=== PATIENT | female | born 1935 | race Caucasian/White ===

== ENCOUNTER 2020-07-10 22:05 | Emergency (ER) | payer MEDICARE, OTHER ==
[2020-07-10] MEDS ORDERED: Acetaminophen 325 MG Tab PO ONE (22:38)
--- NOTE | 2020-07-10 22:38 | EDM.PDOC ---
ED HPI GENERAL MEDICAL PROBLEM - General Chief Complaint: General Stated Complaint: fall, right arm laceration Time Seen by Provider: 07/10/20 22:30 Source of Information: Reports: Patient History Limitations: Reports: No Limitations - History of Present Illness INITIAL COMMENTS - FREE TEXT/NARRATIVE: Presents with her family for a fall at home which occurred approximately 1 hour prior to arrival. Patient tripped on her own feet while walking out of the laundry room fell forward and caught her right forearm on a metal hinge of a door suffered a significantly large skin tear on right anterior forearm. She did hit her head and bumped her glasses off has a small superficial laceration on her right eyebrow along with a large goose egg on her right frontal region with ecchymosis surrounding it. There is no laceration at this site. She is unsure what she hit her head on, likely the floor. She currently takes xarelto for A. fib. Hemostasis to skin tear achieved prior to arrival with direct pressure on right forearm. Tetanus was last updated this year. She did not lose any consciousness remembers the fall. She did not suffer any dizziness or felt like she was going to faint prior to the fall it was purely mechanical reason why she fell. Right Lower Arm Pain Score (Numeric/FACES): 10 - Related Data Allergies Allergy/AdvReac Type Severity Reaction Status Date / Time CT dye Allergy Cannot Uncoded 07/10/20 22:32 Remember Home Meds: Home Meds Rivaroxaban [Xarelto] 20 mg PO DAILY 07/10/20 [History] Ascorbic Acid [Vitamin C] 500 mg PO DAILY 07/11/20 [History] Clobetasol [Clobetasol 0.05%] 1 applic TOP ASDIRECTED PRN 07/11/20 [History] Ferrous Sulfate [Iron] 325 mg PO ASDIRECTED 07/11/20 [History] LORazepam [Ativan] 0.5 mg PO DAILY PRN 07/11/20 [History] Levothyroxine Sodium [Synthroid] 137 mcg PO DAILY 07/11/20 [History] Metoprolol Succinate 50 mg PO DAILY 07/11/20 [History] Multivitamin [Multivitamins] 1 cap PO DAILY 07/11/20 [History] Omeprazole 20 mg PO DAILY 07/11/20 [History] Sertraline [Zoloft] 100 mg PO DAILY 07/11/20 [History] Simvastatin 20 mg PO BEDTIME 07/11/20 [History] cephALEXin [Cephalexin] 500 mg PO TID 5 Days #15 tablet 07/11/20 [Rx] Past Medical History Cardiovascular History: Reports: Afib Hematologic History: Reports: Anticoagulation Therapy ED ROS GENERAL - Review of Systems Review Of Systems: See Below Constitutional: Reports: No Symptoms HEENT: Reports: No Symptoms. Denies: Vision Change Respiratory: Reports: No Symptoms. Denies: Shortness of Breath Cardiovascular: Reports: No Symptoms. Denies: Chest Pain, Dyspnea on Exertion, Syncope GI/Abdominal: Reports: No Symptoms. Denies: Abdominal Pain Musculoskeletal: Reports: No Symptoms. Denies: Neck Pain, Shoulder Pain, Back Pain Skin: Reports: Bruising, Wound Neurological: Reports: No Symptoms. Denies: Confusion, Dizziness, Headache, Numbness, Syncope, Difficulty Walking, Weakness Hematologic/Lymphatic: Reports: Easy Bleeding, Other (on xarelto) ED EXAM, GENERAL - Physical Exam Exam: See Below Exam Limited By: No Limitations General Appearance: Alert, WD/WN, No Apparent Distress Eye Exam: Bilateral Eye: EOMI, PERRL Ears: Normal TMs Nose: Normal Inspection, Normal Mucosa, No Blood Throat/Mouth: Normal Inspection, Normal Lips, Normal Oropharynx, Normal Voice Head: Normocephalic, Facial Tenderness, Other (large goose egg on her right frontal region with ecchymosis, negative for sandy sign negative raccoon eyes.) Neck: Normal Inspection, Supple, Non-Tender, Full Range of Motion. No: Tender Midline Respiratory/Chest: No Respiratory Distress, Lungs Clear, Normal Breath Sounds Cardiovascular: No Edema, Irregularly Irregular Peripheral Pulses: 2+: Radial (L), Radial (R), Dorsalis Pedis (L), Dorsalis Pedis (R) GI/Abdominal: Normal Bowel Sounds, Soft, Non-Tender, Pelvis Stable Back Exam: Normal Inspection, Full Range of Motion. No: Paraspinal Tenderness, Vertebral Tenderness Extremities: Normal Inspection, Normal Range of Motion, Other (Patient does have significant right wrist pain very difficult to assess for bony abnormalities as there is a large laceration covering over it. DNV intact). No: Joint Swelling Neurological: Alert, Oriented, CN II-XII Intact, Normal Cognition, Normal Gait, No Motor/Sensory Deficits Psychiatric: Normal Affect Skin Exam: Warm, Dry, Wound/Incision, Other (large skin tear to her right anterior forearm, small superficial nonrepairable linear abrasion to her right eyebrow from glasses) ED GENERAL MEDICAL PROCEDURES - Laceration/Wound Repair Right Anterior Distal Arm Lac/wound length in cm: 11 Appearance: Subcutaneous, Stellate, Irregular, Clean Distal NVT: Neuro & Vascular Intact, No Tendon Injury Anesthetic Type: Local Local Anesthesia - Lidocaine (Xylocaine): 1% with EPI Local Anesthetic Volume: 5cc Skin Prep: Chlorhexidine (Hibiciens), Saline, Sterile Drape Saline irrigation (cc's): 200 Exploration/Debridement/Repair: Wound Explored, In a Bloodless Field, Explored to Base, No Foreign Material Found, Wound Margins Revised, Multiple Flaps Aligned Closed with: Sutures, Steri-Strips Suture Size: 4-0 # of Sutures: 22 Suture Type: Nylon Course - Vital Signs Last Recorded V/S: Last Vital Signs Temp 98.2 F 07/10/20 22:39 Pulse 77 07/10/20 22:39 Resp 22 H 07/10/20 22:39 BP 168/95 H 07/10/20 22:39 Pulse Ox 95 07/10/20 22:39 - Orders/Labs/Meds Orders: Active Orders 24 hr Category Date Time Status Head wo Cont [CT] Stat Exams 07/10/20 22:27 Ordered Wrist Comp Min 3V Rt [CR] Stat Exams 07/10/20 22:56 Ordered Meds: Medications Discontinued Medications Generic Name Dose Route Start Last Admin Trade Name Freq PRN Reason Stop Dose Admin Acetaminophen 650 mg 07/10/20 22:38 07/10/20 22:49 Tylenol PO 07/10/20 22:39 650 mg NOW ONE Administration Cephalexin 500 mg 07/11/20 00:26 Keflex PO 07/11/20 00:27 ONETIME ONE Lidocaine/Epinephrine Confirm 07/10/20 22:54 Xylocaine 1% With Epinephrine 1:100,000 Administered 07/10/20 22:55 Dose 20 ml .ROUTE .STK-MED ONE Lidocaine/Epinephrine 20 ml 07/10/20 22:54 Xylocaine 1% With Epinephrine 1:100,000 INJECT 07/10/20 22:55 ONETIME ONE - Re-Assessments/Exams Free Text/Narrative Re-Assessment/Exam: 07/10/20 22:44 Patient is on anticoagulants head injury with signs of head trauma despite normal neurological examination patient was sent for CT head without contrast. Repaired the skin tear on anterior forearm as well. See procedure note. No upper or lower extremity bony tenderness. No neck or midline cervical tenderness. Free Text/Narrative Re-Assessment/Exam: 07/11/20 00:34 CT head negative for intracranial bleed and right wrist x-ray was unremarkable for acute fracture. I repaired the large laceration under sterile technique see procedure note. Patient tolerated very well. Due to it was a very large laceration and minimally contaminated, despite extensive wound cleaning and antiseptic chlorhexidine was used around the wound edges but not getting in the wound, prophylactic antibiotics were given to prevent infection. We had a conversation to wait and watch and not start antibiotics however the patient and I both weighed the risks and benefits, agree to take a 5-day course of prophylactics (keflex), her first dose was given the ED and prescription sent to the pharmacy. Wound dressing was covered with Telfa 4 x 4 gauze and wrapped in Kerlix. She will change the wound dressing tomorrow she understands to come back anytime she has any questions concerns about her wound. Return precaution discussed with head injury. The chance for delayed bleeding, despite negative CT scan. Family were both educated she is going home with her and daughter lives close by and can keep a close eye on her to the next 1 to 2 days. Return precautions discussed have low threshold return to the ED. Departure - Departure Time of Disposition: 00:33 Disposition: Home, Self-Care 01 Condition: Good Clinical Impression: Laceration of forearm without foreign body Qualifiers: Encounter type: initial encounter Laterality: right Qualified Code(s): S51.811A - Laceration without foreign body of right forearm, initial encounter - Discharge Information *PRESCRIPTION DRUG MONITORING PROGRAM REVIEWED*: No *COPY OF PRESCRIPTION DRUG MONITORING REPORT IN PATIENT JAIME: No Prescriptions: cephALEXin [Cephalexin] 500 mg PO TID 5 Days #15 tablet Referrals: Helga Moreno NP [Primary Care Provider] - Forms: ED Department Discharge Additional Instructions: return in 12 days for suture removal. monitor signs and symptoms of infection, keep clean and dry may shower in 24 hours, keep the site away from water, seal and cover while in tub or shower. take antibiotic for three times daily for 5 days. Sepsis Event Note (ED) - Focused Exam Vital Signs: Vital Signs Temp Pulse Resp BP Pulse Ox 07/10/20 22:39 98.2 F 77 22 H 168/95 H 95 - My Orders Last 24 Hours: My Active Orders 07/10/20 22:27 Head wo Cont [CT] Stat 07/10/20 22:56 Wrist Comp Min 3V Rt [CR] Stat - Assessment/Plan Last 24 Hours: My Active Orders 07/10/20 22:27 Head wo Cont [CT] Stat 07/10/20 22:56 Wrist Comp Min 3V Rt [CR] Stat
[2020-07-10] MEDS ORDERED: Lidocaine 1% with EPINEPHrine 1:100,000 20 ML MDV INJECT ONE (22:54)
[2020-07-10] MEDS ORDERED: Lidocaine 1% with EPINEPHrine 1:100,000 20 ML MDV ONE (22:54)
[2020-07-11] MEDS ORDERED: Cephalexin 250 MG Cap PO ONE (00:26)
--- NOTE | 2020-07-11 07:48 | CT ---
[id number] CT/CT Head WO IV EXAM: NONCONTRAST HEAD CT INDICATION: Fall. COMPARISON: October 22, 2017. DISCUSSION: Soft tissue swelling in the right anterior scalp and face. There is moderate generalized atrophy. The bearden and white matter are normal in attenuation. No mass effect or midline shift. No acute hemorrhage or extra-axial fluid collection. No acute territorial infarct is identified. Frothy secretions within the left sphenoid sinus are compatible with acute sinusitis. IMPRESSION: 1. No acute intracranial findings. 2. Acute left sphenoid sinusitis. Grant Joe MD 07/11/20 0747 Thank you for allowing us to participate in the care of your patient.
--- NOTE | 2020-07-11 08:36 | CR ---
[id number] RAD/RAD Wrist Right 3V Min EXAM: RAD Wrist Right 3V Min INDICATION: WRIST INJURY, LARGE LACERATION, FALL COMPARISON: January 30, 2016. DISCUSSION: Osteopenia and degenerative changes limit sensitivity for fracture. Within this limitation no fracture or dislocation is identified. There is advanced first carpometacarpal osteoarthritis with mild radial subluxation of the first metacarpal. Moderate degenerative changes throughout the remaining radiocarpal and intercarpal joints. Chondrocalcinosis most prominent at the TFCC. IMPRESSION: 1. No acute findings. Grant Joe MD 07/11/20 0835 Thank you for allowing us to participate in the care of your patient.
== END 2020-07-11 01:00 | disposition home or self-care (01) ==
LOC: KA.ED 22:05
DX: S51.811A Laceration without foreign body of right forearm, initial encounter (principal); S01.111A Laceration without foreign body of right eyelid and periocular area, initial encounter; I48.91 Unspecified atrial fibrillation; Z79.01 Long term (current) use of anticoagulants; Z91.041 Radiographic dye allergy status; Z79.899 Other long term (current) drug therapy; W01.198A Fall on same level from slipping, tripping and stumbling with subsequent striking against other object, initial encounter; Y92.009 Unspecified place in unspecified non-institutional (private) residence as the place of occurrence of the external cause
CPT/HCPCS: 12004; 70450; 73110-RT; 99283; 99283-25; A9270-GY

== ENCOUNTER 2020-08-01 10:47 | Emergency (ER) | payer MEDICARE, OTHER ==
--- NOTE | 2020-08-01 11:07 | EDM.PDOC ---
ED HPI GENERAL MEDICAL PROBLEM - General Stated Complaint: GAS Time Seen by Provider: 08/01/20 11:01 Source of Information: Reports: Patient History Limitations: Reports: No Limitations - History of Present Illness INITIAL COMMENTS - FREE TEXT/NARRATIVE: Presents emergency room by her Chuy for complaints of feeling fatigue, shortness of breath along with increased anxiety. Patient recently was seen in the [facility] out of town a few days ago. Wound care was done to her right wrist. Patient has been very worried about her right wrist laceration that is healing nicely. She denies any fever chills body aches chest pain she does have some shortness of breath when she becomes anxious. No shortness of breath with exertion or at rest when she develops anxiety she gets short of breath. Patient was recently changed antidepressants from sertraline to citalopram. And she is in the process of switching primary care providers over to [facility] with Dr. Nury Myers. Patient denies any COVID-19 exposures or concerns. Denies any upper respiratory infection symptoms as well. She did have a fall last time she was evaluated emergency room in which she still has a healing bruise underneath the right eye and some ecchymosis on her right upper thigh lateral aspect. Gait is stable and no more falls. She does take anticoagulants. She does complain of some intermittent dysuria at times and would like her urine checked as she does have history of UTIs once in a while. She does have history of lichen sclerosus which she uses clobetasol propionate for. She did not apply any on this m orning, she is forgot to. Abdomen Pain Score (Numeric/FACES): 2 - Related Data Allergies Allergy/AdvReac Type Severity Reaction Status Date / Time iodine Allergy Cannot Verified 08/01/20 11:[address] dye Allergy Cannot Uncoded 08/01/20 11:05 Remember Home Meds: Home Meds Rivaroxaban [Xarelto] 20 mg PO DAILY 07/10/20 [History] Ascorbic Acid [Vitamin C] 500 mg PO DAILY 07/11/20 [History] Clobetasol [Clobetasol 0.05%] 1 applic TOP ASDIRECTED PRN 07/11/20 [History] Ferrous Sulfate [Iron] 325 mg PO ASDIRECTED 07/11/20 [History] LORazepam [Ativan] 0.5 mg PO DAILY PRN 07/11/20 [History] Levothyroxine Sodium [Synthroid] 137 mcg PO DAILY 07/11/20 [History] Metoprolol Succinate 50 mg PO DAILY 07/11/20 [History] Multivitamin [Multivitamins] 1 cap PO DAILY 07/11/20 [History] Omeprazole 20 mg PO DAILY 07/11/20 [History] Simvastatin 20 mg PO BEDTIME 07/11/20 [History] Cyanocobalamin (Vitamin B-12) [Cyanocobalamin Injection] 1,000 mcg IM ASDIRECTED 08/01/20 [History] Escitalopram Oxalate 10 mg PO DAILY 08/01/20 [History] Fluticasone Propionate 2 spray NASBOTH BID 08/01/20 [History] Past Medical History Cardiovascular History: Reports: Afib Endocrine/Metabolic History: Reports: Hypothyroidism Hematologic History: Reports: Anticoagulation Therapy Social & Family History - Caffeine Use Caffeine Use: Reports: Coffee ED ROS GENERAL - Review of Systems Review Of Systems: Comprehensive ROS is negative, except as noted in HPI. Constitutional: Denies: Fever, Chills Respiratory: Reports: Shortness of Breath Cardiovascular: Denies: Chest Pain GI/Abdominal: Reports: Decreased Appetite, Flatus, Other (feels bloated). Denies: Black Stool, Bloody Stool, Constipation, Diarrhea, Distension, Hematemesis, Hematochezia, Melena, Nausea Skin: Reports: Wound (right wrist laceration. ) Hematologic/Lymphatic: Reports: Easy Bleeding, Other (on xarelto.) ED EXAM, GENERAL - Physical Exam Exam: See Below Exam Limited By: No Limitations General Appearance: Alert, WD/WN, No Apparent Distress Nose: Normal Inspection Throat/Mouth: Normal Inspection, Normal Oropharynx Head: Atraumatic, Normocephalic Neck: Normal Inspection, Supple Respiratory/Chest: No Respiratory Distress, Lungs Clear, Normal Breath Sounds Cardiovascular: Normal Peripheral Pulses, Regular Rate, Rhythm, No Edema. No: Tachycardia Peripheral Pulses: 2+: Radial (L), Radial (R) GI/Abdominal: Normal Bowel Sounds, Soft, Non-Tender, No Organomegaly, No Distention, No Mass. No: Distended, Guarding, Rigid, Rebound, Tender Neurological: Alert, Oriented, Normal Cognition Psychiatric: Anxious Skin Exam: Warm, Dry, Intact, Ecchymosis (ecchymosis to her right thigh and underneath right eye and upper cheek area from previous fall, in healing stages. ), Wound/Incision (right wrist laceration intact, small scabs, three steri strips remain, no signs of infection.) Course - Vital Signs Last Recorded V/S: Last Vital Signs Temp 96.5 F L 08/01/20 11:23 Pulse 80 08/01/20 11:23 Resp 20 08/01/20 11:23 BP 190/98 H 08/01/20 11:23 Pulse Ox 94 L 08/01/20 11:23 - Orders/Labs/Meds Orders: Active Orders 24 hr Category Date Time Status CULTURE URINE [RM] Stat Lab 08/01/20 11:36 Ordered UA W/MICROSCOPIC [URIN] Stat Lab 08/01/20 11:13 Results Labs: Laboratory Tests 08/01/20 Range/Units 11:13 Urine Color Yellow (YELLOW) Urine Appearance Slightly cloudy H (CLEAR) Urine pH 7.0 (5.0-9.0) Ur Specific [place] 1.015 (1.005-1.030) Urine Protein Negative (NEGATIVE) mg/dL Urine Glucose (UA) Negative (NEGATIVE) mg/dL Urine Ketones Negative (NEGATIVE) mg/dL Urine Occult Blood Trace-intact H (NEGATIVE) Urine Nitrite Negative (NEGATIVE) Urine Bilirubin Negative (NEGATIVE) Urine Urobilinogen 0.2 (0.2-1.0) E.U./dL Ur Leukocyte Esterase Negative (NEGATIVE) - Re-Assessments/Exams Free Text/Narrative Re-Assessment/Exam: 08/01/20 11:04 Patient presents with some shortness of breath mild and some anxiousness. Patient has been anxious since her fall. They did switch her to Lexapro 10 mg from sertraline. Patient also has concern about her right wrist wound in which I actually repaired in the emergency room with 22 sutures. It looks exceptionally well I may say, no signs of infection is healing intact. There is a few small scabs and a few 3 Steri-Strips remaining which I carefully removed easily. No signs of wound dehiscence. No signs of erythema or drainage. Patient does have ongoing off and on lichen sclerosis. In which she treats it with topical clobetasol. Patient notes having some intermittent dysuria when she pees. She notes she gets occasional UTI and she wants her urine checked out to make sure she does not have one. Denies any flank pain fever chills or acute abdominal pain. She has sensation of feeling bloated and gassy. She has been taken extra stool softener per day to help with stools, not exactly sure why as she is having normal bowel movement per day. 08/01/20 11:27 No signs or symptoms of red flags on exam. Patient shortness of breath resolved immediately after I was able to calm her down. Patient has normal vital signs. She does have some hypertension and she is quite anxious. She is going to follow-up with Dr. Nury Myers establish care in the clinic. Return precautions discussed with patient. Patient was reassured that her exam is benign. We did some wound dressing to her right wrist laceration no signs of complication with that either. Did apply some triple antibiotic ointment on there to help with it. 08/01/20 11:36 No signs of urinary tract infection. Patient does have some mild blood likely secondary to lichen sclerosis. Will send urine off for culture. No indication start antibiotics this time. Likely her symptoms related to her chronic condition. Departure - Departure Time of Disposition: 11:37 Disposition: Home, Self-Care 01 Condition: Good Clinical Impression: Encounter for wound re-check, Dysuria, Rapid breathing due to anxiety - Discharge Information *PRESCRIPTION DRUG MONITORING PROGRAM REVIEWED*: No *COPY OF PRESCRIPTION DRUG MONITORING REPORT IN PATIENT JAIME: No Instructions: Wound Care, Adult Referrals: Louis-Nury Ogden MD [Primary Care Provider] - Additional Instructions: f/u with Dr. Nury Myers to establish care in the clinic. Return to emergency room if your shortness of breath returns or you develop any chest pain or any other new or worsening condition symptoms. please do not hesitate to call if you have any concerns. Sepsis Event Note (ED) - Focused Exam Vital Signs: Vital Signs Temp Pulse Resp BP Pulse Ox 08/01/20 11:23 96.5 F L 80 20 190/98 H 94 L - My Orders Last 24 Hours: My Active Orders 08/01/20 11:13 UA W/MICROSCOPIC [URIN] Stat 08/01/20 11:36 CULTURE URINE [RM] Stat - Assessment/Plan Last 24 Hours: My Active Orders 08/01/20 11:13 UA W/MICROSCOPIC [URIN] Stat 08/01/20 11:36 CULTURE URINE [RM] Stat
== END 2020-08-01 12:15 | disposition home or self-care (01) ==
LOC: KA.ED 10:47
DX: F41.9 Anxiety disorder, unspecified (principal); R30.0 Dysuria; S61.511D Laceration without foreign body of right wrist, subsequent encounter; S70.11XD Contusion of right thigh, subsequent encounter; S00.83XD Contusion of other part of head, subsequent encounter; E03.9 Hypothyroidism, unspecified; I48.91 Unspecified atrial fibrillation; Z88.8 Allergy status to other drugs, medicaments and biological substances; Z91.041 Radiographic dye allergy status; Z79.899 Other long term (current) drug therapy; W19.XXXD Unspecified fall, subsequent encounter
CPT/HCPCS: 81001; 87086; 87088; 87186; 99283; 99284

== ENCOUNTER 2020-09-05 13:20 | Emergency (ER) | payer MEDICARE, OTHER ==
--- NOTE | 2020-09-05 14:05 | EDM.PDOC ---
ED HPI GENERAL MEDICAL PROBLEM - General Chief Complaint: Laceration Stated Complaint: FALL/HEAD LACERATION Time Seen by Provider: 09/05/20 13:45 Source of Information: Reports: Patient History Limitations: Reports: No Limitations - History of Present Illness INITIAL COMMENTS - FREE TEXT/NARRATIVE: 85 YO WF PRESENTS TO ER AFTER SLIP AND FALL IN THE BATHROOM EARLIER TODAY. PT RE PORTS SHE TRIED TO CATCH HERSELF BUT WAS UNABLE TO AND STRUCK HER HEAD CAUSING A 6CM SCALP LACERATION. PT DENIES ANY LOSS OF CONSCIOUSNESS. PT DENIES HEADACHE OR NECK PAIN. PT STATES THAT HER HEAD IS SORE ONLY IN THE LOCATION OF THE LACERATION. PT REPORTS SHE IS CURRENTLY TAKING XARELTO. PT DENIES ANY OTHER INJURIES OR COMPLAINTS AT THIS TIME. PT IS ALERT AND ORIENTED X 4 WITH GCS-15. Duration: Hour(s): (2) Location: Reports: Head Quality: Reports: Ache Severity: Mild Improves with: Reports: None Worsens with: Reports: None Associated Symptoms: Reports: No Other Symptoms Head Pain Score (Numeric/FACES): 7 - Related Data Allergies Allergy/AdvReac Type Severity Reaction Status Date / Time iodine Allergy Cannot Verified 09/05/20 14:[address] dye Allergy Cannot Uncoded 09/05/20 14:09 Remember Home Meds: Home Meds Rivaroxaban [Xarelto] 20 mg PO DAILY 07/10/20 [History] Ascorbic Acid [Vitamin C] 500 mg PO DAILY 07/11/20 [History] Clobetasol [Clobetasol 0.05%] 1 applic TOP ASDIRECTED PRN 07/11/20 [History] Ferrous Sulfate [Iron] 325 mg PO ASDIRECTED 07/11/20 [History] LORazepam [Ativan] 0.5 mg PO DAILY PRN 07/11/20 [History] Levothyroxine Sodium [Synthroid] 137 mcg PO DAILY 07/11/20 [History] Metoprolol Succinate 50 mg PO DAILY 07/11/20 [History] Multivitamin [Multivitamins] 1 cap PO DAILY 07/11/20 [History] Omeprazole 20 mg PO DAILY 07/11/20 [History] Simvastatin 20 mg PO BEDTIME 07/11/20 [History] Cyanocobalamin (Vitamin B-12) [Cyanocobalamin Injection] 1,000 mcg IM ASDIRECTED 08/01/20 [History] Escitalopram Oxalate 10 mg PO DAILY 08/01/20 [History] Fluticasone Propionate 2 spray NASBOTH BID 08/01/20 [History] Past Medical History HEENT History: Reports: Cataract, Impaired Vision Cardiovascular History: Reports: Afib Gastrointestinal History: Reports: Chronic Constipation, Colon Polyp, GERD Genitourinary History: Reports: UTI, Recurrent 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: Musculoskeletal History: Reports: Arthritis Psychiatric History: Reports: Anxiety, Depression, Panic Attack Endocrine/Metabolic History: Reports: Hypothyroidism Hematologic History: Reports: Anticoagulation Therapy Dermatologic History: Reports: Psoriasis, Other (See Below) Other Dermatologic History: on scalp - Infectious Disease History Infectious Disease History: Reports: Chicken Pox, Measles, Mumps - Past Surgical History HEENT Surgical History: Reports: Cataract Surgery Cardiovascular Surgical History: Reports: None GI Surgical History: Reports: Cholecystectomy, Colonoscopy Female Surgical History: Reports: Breast Biopsy, Other (See Below) Other Female Surgeries/Procedures: lumpectomy Endocrine Surgical History: Reports: None Musculoskeletal Surgical History: Reports: Knee Replacement, Other (See Below) Other Musculoskeletal Surgeries/Procedures:: bilateral Dermatological Surgical History: Reports: None Social & Family History - Caffeine Use Caffeine Use: Reports: Coffee ED ROS GENERAL - Review of Systems Review Of Systems: See Below Constitutional: Reports: No Symptoms HEENT: Reports: No Symptoms Respiratory: Reports: No Symptoms Cardiovascular: Reports: No Symptoms Endocrine: Reports: No Symptoms GI/Abdominal: Reports: No Symptoms : Reports: No Symptoms Musculoskeletal: Reports: No Symptoms Skin: Reports: Wound (6CM LACERATION TO SCALP) Neurological: Reports: No Symptoms Psychiatric: Reports: No Symptoms Hematologic/Lymphatic: Reports: No Symptoms Immunologic: Reports: No Symptoms ED EXAM, SKIN/RASH Exam: See Below Exam Limited By: No Limitations General Appearance: Alert, WD/WN, No Apparent Distress Eye Exam: Bilateral Eye: EOMI, PERRL Ears: Normal External Exam, Normal Canal, Hearing Grossly Normal, Normal TMs Nose: Normal Inspection, Normal Mucosa, No Blood Throat/Mouth: Normal Inspection, Normal Lips, Normal Teeth, Normal Gums, Normal Oropharynx, Normal Voice, No Airway Compromise Head: Normocephalic. No: Atraumatic, Facial Swelling, Facial Tenderness, Sinus Tenderness Neck: Normal Inspection, Supple, Non-Tender, Full Range of Motion Respiratory/Chest: No Respiratory Distress, Lungs Clear, Normal Breath Sounds, No Accessory Muscle Use, Chest Non-Tender Cardiovascular: Normal Peripheral Pulses, Regular Rate, Rhythm, No Edema, No Gallop, No JVD, No Murmur, No Rub GI/Abdominal: Normal Bowel Sounds, Soft, Non-Tender, No Organomegaly, No Distention, No Abnormal Bruit, No Mass Back Exam: Normal Inspection, Full Range of Motion, NT Extremities: Normal Inspection, Normal Range of Motion, Non-Tender, No Pedal Edema, Normal Capillary Refill Neurological: Alert, Oriented, CN II-XII Intact, Normal Cognition, Normal Gait, Normal Reflexes, No Motor/Sensory Deficits Psychiatric: Normal Affect, Normal Mood Skin: Warm, Dry, Normal Color, No Rash, Wound/Incision (6CM LACERATION TO SCALP) Lymphatic: No Adenopathy ED SKIN PROCEDURES - Laceration/Wound Repair Right [place] Head Appearance: Subcutaneous, Linear Distal NVT: Neuro & Vascular Intact Local Anesthetic Volume: 5cc Skin Prep: Chlorhexidine (Hibiciens), Saline Exploration/Debridement/Repair: Wound Explored, In a Bloodless Field Closed with: [place] Lac/Wound length In cm: 6 # of Sutures: 7 Sterile Dressing Applied: None Tetanus Status Addressed: Yes Complications: No Course - Vital Signs Last Recorded V/S: Last Vital Signs Temp 36.0 C L 09/05/20 15:00 Pulse 77 09/05/20 15:00 Resp 18 09/05/20 15:00 BP 144/83 H 09/05/20 15:00 Pulse Ox 94 L 09/05/20 15:00 - Radiology Interpretation Free Text/Narrative:: CT HEAD-3MM SUBDURAL WITHOUT MASS AFFECT OR SHIFT - Re-Assessments/Exams Free Text/Narrative Re-Assessment/Exam: 09/05/20 15:03 PT ALERT AND ORIENTED X 4 GCS-15; NO NECK PAIN, NO HEADACHE; NO NAUSEA/VOMITING Departure - Departure Time of Disposition: 15:05 Disposition: DC/Tfer to Acute Hospital 02 Condition: Good Clinical Impression: Subdural hematoma Scalp laceration Qualifiers: Encounter type: initial encounter Qualified Code(s): S01.01XA - Laceration without foreign body of scalp, initial encounter Head injury Qualifiers: Encounter type: initial encounter Qualified Code(s): S09.90XA - Unspecified injury of head, initial encounter - Discharge Information Referrals: NuecesBhavna,Nury A, MD [Primary Care Provider] - Forms: ED Department Discharge, Interfacility Transfer [place] Sepsis Event Note (ED) - Evaluation Sepsis Screening Result: No Definite Risk - Focused Exam Vital Signs: Vital Signs Temp Pulse Resp BP Pulse Ox 09/05/20 15:00 36.0 C L 77 18 144/83 H 94 L 09/05/20 13:39 91 144/75 H 95 - Assessment/Plan Assessment:: 1. HEAD INJURY- SMALL 3MM SUBDURAL WITHOUT MASS AFFECT OR SHIFT 2. 6CM SCALP LACERATION Plan: 1. TRANSFER TO [facility] ACCEPTING 2. SUPPORTIVE CARE 3. CONSIDER REVERSAL OF XARELTO PER NEUROSURGERY ONCE ARRIVES IN [place] 4. NEURO CHECKS Q30MIN
--- NOTE | 2020-09-05 14:48 | CT ---
[id number] CT/CT Head WO IV EXAM: CT Head WO IV CLINICAL DATA: TRAUMA. COMPARISON STUDY: 10/22/2017. FINDINGS: Acute extra-axial hematoma along the right frontal convexity measuring up to 3 mm. No significant mass effect. No shift of midline. No mass, or acute ischemia. Generalized parenchymal atrophy with scattered areas of nonspecific white matter disease, commonly seen as sequela of chronic microvascular ischemia. Right frontal scalp hematoma without underlying calvarial fracture. There is a staple line identified. Paranasal sinuses and mastoid air cells are clear. IMPRESSION: Acute extra-axial hematoma along the right frontal convexity measuring up to 3 mm. No significant mass effect. No shift of midline. Findings were discussed with ordering provider at time of dictation. Nicholas Craig DO 09/05/20 1447 Thank you for allowing us to participate in the care of your patient.
== END 2020-09-05 15:25 ==
LOC: KA.ED 13:20
DX: S06.5X0A Traumatic subdural hemorrhage without loss of consciousness, initial encounter (principal); S01.01XA Laceration without foreign body of scalp, initial encounter; I48.91 Unspecified atrial fibrillation; K21.9 Gastro-esophageal reflux disease without esophagitis; F41.9 Anxiety disorder, unspecified; F32.9 Major depressive disorder, single episode, unspecified; E03.9 Hypothyroidism, unspecified; Z91.048 Other nonmedicinal substance allergy status; Z91.041 Radiographic dye allergy status; Z79.899 Other long term (current) drug therapy; Z79.01 Long term (current) use of anticoagulants; W01.0XXA Fall on same level from slipping, tripping and stumbling without subsequent striking against object, initial encounter
CPT/HCPCS: 12002; 70450; 99284; 99284-25

== ENCOUNTER 2021-08-08 12:09 | Emergency (ER) | payer MEDICARE, OTHER ==
--- NOTE | 2021-08-08 12:45 | CT ---
[id number] CT/CT Head Stroke Protocol EXAM: CT Head Stroke Protocol CLINICAL DATA: CVA COMPARISON STUDY: 09/05/2020. FINDINGS: No intracranial hemorrhage, extra-axial fluid collection, mass, or acute ischemia. Generalized parenchymal atrophy with scattered areas of nonspecific white matter disease, commonly seen as sequela of chronic microvascular ischemia. Soft tissues are unremarkable. Mild mucosal thickening without evidence of aggressive sinusitis. IMPRESSION: No acute intracranial findings. Nicholas Craig DO 08/08/21 1244 Thank you for allowing us to participate in the care of your patient.
[2021-08-08 13:22] LABS: ANION GAP 15.3 mmol/L (5-15); CHLORIDE,CL 104 mmol/L (98-107); SODIUM,NA 140 mmol/L (136-145)
[2021-08-08 13:28] LABS: PTT,PARTIAL THROMBOPLSTIN TIME 24.3 SEC (22.8-31.4)
[2021-08-08] MEDS ORDERED: Ondansetron 4 MG/2 ML SDV ONE (13:42)
[2021-08-08] MEDS ORDERED: Ondansetron 4 MG/2 ML SDV IVPUSH ONE (14:11)
--- NOTE | 2021-08-08 15:29 | EDM.PDOC ---
ED HPI GENERAL MEDICAL PROBLEM - General Chief Complaint: Neuro Symptoms/Deficits Stated Complaint: FALL/STROKE-LIKE SYMPTOMS Time Seen by Provider: 08/08/21 12:10 Source of Information: Reports: EMS, Family (, extended family) History Limitations: Reports: Altered Mental Status - History of Present Illness INITIAL COMMENTS - FREE TEXT/NARRATIVE: 86-year-old female presents to the emergency room brought in by EMS for acute stroke symptoms. Patient is non-responsive. She was seen in the bathroom by her at approximately 1030. She had a bleeding left lip she was slouched to the left side. He had last witnessed her at 830 before he left and she was ambulatory and talkative. She has been recently in the last year declining in health and has had multiple falls. She did have a subdural hematoma from one of the falls and was seen and evaluated admitted at [facility] in [place]. She was on anticoagulation Xarelto. It was elected to discontinue her anticoagulation due to her frequent falling and failing of health. She was on the Xarelto for atrial fib. Upon arrival she is nonresponsive her eyes are opening she seems to have flaccid weakness on the right side with slight facial droop. Her eyes tend to gaze to the right. She is not able to respond to any questions. She is able to bring her left arm up to her chest independently. She is not following commands. NIH score was 20 upon arrival Onset: Today Onset Date: 08/08/21 Onset Time: 09:00 Duration: Hour(s):, Constant Location: Reports: Face, Upper Extremity, Right, Lower Extremity, Right - Related Data Allergies Allergy/AdvReac Type Severity Reaction Status Date / Time iodine Allergy Cannot Verified 08/08/21 14:[address] dye Allergy Cannot Uncoded 08/08/21 14:13 Remember Home Meds: Home Meds Rivaroxaban [Xarelto] 20 mg PO DAILY 07/10/20 [History] Ascorbic Acid [Vitamin C] 500 mg PO DAILY 07/11/20 [History] Clobetasol [Clobetasol 0.05%] 1 applic TOP ASDIRECTED PRN 07/11/20 [History] Ferrous Sulfate [Iron] 325 mg PO ASDIRECTED 07/11/20 [History] LORazepam [Ativan] 0.5 mg PO DAILY PRN 07/11/20 [History] Levothyroxine Sodium [Synthroid] 137 mcg PO DAILY 07/11/20 [History] Metoprolol Succinate 50 mg PO DAILY 07/11/20 [History] Multivitamin [Multivitamins] 1 cap PO DAILY 07/11/20 [History] Omeprazole 20 mg PO DAILY 07/11/20 [History] Simvastatin 20 mg PO BEDTIME 07/11/20 [History] Cyanocobalamin (Vitamin B-12) [Cyanocobalamin Injection] 1,000 mcg IM ASDIRECTED 08/01/20 [History] Escitalopram Oxalate 10 mg PO DAILY 08/01/20 [History] Fluticasone Propionate 2 spray NASBOTH BID 08/01/20 [History] Past Medical History HEENT History: Reports: Cataract, Impaired Vision Cardiovascular History: Reports: Afib Gastrointestinal History: Reports: Chronic Constipation, Colon Polyp, GERD Genitourinary History: Reports: UTI, Recurrent 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: Musculoskeletal History: Reports: Arthritis Psychiatric History: Reports: Anxiety, Depression, Panic Attack Endocrine/Metabolic History: Reports: Hypothyroidism Hematologic History: Reports: Anticoagulation Therapy Dermatologic History: Reports: Psoriasis, Other (See Below) Other Dermatologic History: on scalp - Infectious Disease History Infectious Disease History: Reports: Chicken Pox, Measles, Mumps - Past Surgical History HEENT Surgical History: Reports: Cataract Surgery Cardiovascular Surgical History: Reports: None GI Surgical History: Reports: Cholecystectomy, Colonoscopy Female Surgical History: Reports: Breast Biopsy, Other (See Below) Other Female Surgeries/Procedures: lumpectomy Endocrine Surgical History: Reports: None Musculoskeletal Surgical History: Reports: Knee Replacement, Other (See Below) Other Musculoskeletal Surgeries/Procedures:: bilateral Dermatological Surgical History: Reports: None Social & Family History - Caffeine Use Caffeine Use: Reports: Coffee ED ROS GENERAL - Review of Systems Review Of Systems: Unable To Obtain Reason Not Obtained: Responsive to verbal commands due to probable underlying stroke ED EXAM, NEURO - Physical Exam Exam: See Below Exam Limited By: Altered Mental Status General Appearance: Alert, No Apparent Distress, Thin Eye Exam: Bilateral Eye: EOMI Ears: Normal External Exam Nose: Normal Inspection Throat/Mouth: Other (Mild facial droop. There is an abrasion cut of the right lower lip) Head Exam: Facial Swelling (Right brow facial swelling, bruising) Neck: Normal Inspection, Supple, Non-Tender Respiratory/Chest: No Respiratory Distress, Lungs Clear Cardiovascular: Regular Rate, Rhythm GI/Abdominal: Normal Bowel Sounds, Soft, Non-Tender, No Organomegaly, No Distention Neurological: Alert, Babinski (Positive right great toe. Clonus is absent bilaterally), Other (Please see the patient's NIH score stroke scale which includes minor paralysis for facial. No movements of motor arm no movement of motor leg mild sensory loss. Mute with global aphasia, severe dysarthria Michelle.) DTR: 0: Bicep (R), Bicep (L), Tricep (R), Tricep (L), Patella (R), Patella (L), Achilles (R), Achilles (L) Back Exam: Normal Inspection Extremities: Pedal Edema (Bilaterally) Psychiatric: Flat Affect Skin Exam: Warm, Dry, Intact, Normal Color, No Rash #1 Interpretation Rhythm: A-Fib Rate (Beats/Min): 101 [place]: Normal QRS: Normal ST-T: Normal QT: Normal Comparison: NA - No Prior EKG EKG Interpretation Comments: Atrial fibrillation with rapid ventricular response. Atrial septal infarct age undetermined ST and T wave abnormality, consider lateral ischemia or digitalis effect Abnormal ECG Course - Vital Signs Last Recorded V/S: Last Vital Signs Temp 96.8 F L 08/08/21 12:15 Pulse 105 H 08/08/21 12:15 Resp 20 08/08/21 12:15 BP 138/76 08/08/21 12:15 Pulse Ox 95 08/08/21 12:15 - Orders/Labs/Meds Orders: Active Orders 24 hr Category Date Time Status EKG Documentation Completion [RC] ASDIRECTED Care 08/08/21 12:30 Active EKG 12 Lead [EK] Stat Ther 08/08/21 12:30 Ordered Labs: Laboratory Tests 08/08/21 08/08/21 08/08/21 Range/Units 12:32 12:45 12:45 WBC 8.17 (5.00-10.00) 10^3/uL RBC 4.06 (3.80-5.50) 10^6/uL Hgb 12.1 D (12.0-16.0) g/dL Hct 38.0 (37.0-47.0) % MCV 93.6 H (82.0-92.0) fL MCH 29.8 (27.0-31.0) pg MCHC 31.8 L (32.0-36.0) g/dL RDW 13.5 (11.5-14.5) % Plt Count 171 (150-400) 10^3/uL MPV 9.3 (7.4-10.4) fL Immature Gran % (Auto) 0.1 (0.0-5.0) % Neut % (Auto) 88.3 H (50.0-70.0) % Lymph % (Auto) 5.8 L (20.0-40.0) % [place] % (Auto) 5.6 (2.0-8.0) % Eos % (Auto) 0.1 L (1.0-3.0) % Baso % (Auto) 0.1 (0.0-1.0) % Neut # (Auto) 7.21 H (2.50-7.00) 10^3/uL Lymph # (Auto) 0.47 L (1.00-4.00) 10^3/uL [place] # (Auto) 0.46 (0.10-0.80) 10^3/uL Eos # (Auto) 0.01 L (0.10-0.30) 10^3/uL Baso # (Auto) 0.01 (0.00-0.10) 10^3/uL Immature Gran # (Auto) 0.01 (0.00-0.50) 10^3/uL PT 10.5 (9.2-11.2) SEC INR 1.0 (0.9-1.1) APTT 24.3 (22.8-31.4) SEC Sodium (136-145) mmol/L Potassium (3.5-5.1) mmol/L Chloride (98-107) mmol/L Carbon Dioxide (21.0-32.0) mmol/L Anion Gap (5-15) mmol/L BUN (7-18) mg/dL Creatinine (0.51-1.17) mg/dL Est Cr Clr Drug Dosing Estimated GFR (MDRD) mL/min Glucose (70-140) mg/dL POC Glucose 132 (70-140) mg/dL Calcium (8.7-10.3) mg/dL Total Bilirubin (0.2-1.0) mg/dL AST (15-37) U/L ALT (14-63) U/L Alkaline Phosphatase (46-116) U/L Troponin I High Sens (0-51.000) pg/mL B-Natriuretic Peptide (0-100) pg/mL Total Protein (6.4-8.2) g/dL Albumin (3.40-5.00) g/dL 08/08/21 Range/Units 12:45 WBC (5.00-10.00) 10^3/uL RBC (3.80-5.50) 10^6/uL Hgb (12.0-16.0) g/dL Hct (37.0-47.0) % MCV (82.0-92.0) fL MCH (27.0-31.0) pg MCHC (32.0-36.0) g/dL RDW (11.5-14.5) % Plt Count (150-400) 10^3/uL MPV (7.4-10.4) fL Immature Gran % (Auto) (0.0-5.0) % Neut % (Auto) (50.0-70.0) % Lymph % (Auto) (20.0-40.0) % [place] % (Auto) (2.0-8.0) % Eos % (Auto) (1.0-3.0) % Baso % (Auto) (0.0-1.0) % Neut # (Auto) (2.50-7.00) 10^3/uL Lymph # (Auto) (1.00-4.00) 10^3/uL [place] # (Auto) (0.10-0.80) 10^3/uL Eos # (Auto) (0.10-0.30) 10^3/uL Baso # (Auto) (0.00-0.10) 10^3/uL Immature Gran # (Auto) (0.00-0.50) 10^3/uL PT (9.2-11.2) SEC INR (0.9-1.1) APTT (22.8-31.4) SEC Sodium 140 (136-145) mmol/L Potassium 3.7 (3.5-5.1) mmol/L Chloride 104 (98-107) mmol/L Carbon Dioxide 24.4 (21.0-32.0) mmol/L Anion Gap 15.3 H (5-15) mmol/L BUN 25 H (7-18) mg/dL Creatinine 1.04 (0.51-1.17) mg/dL Est Cr Clr Drug Dosing TNP Estimated GFR (MDRD) 50 mL/min Glucose 145 H (70-140) mg/dL POC Glucose (70-140) mg/dL Calcium 9.6 (8.7-10.3) mg/dL Total Bilirubin 0.8 (0.2-1.0) mg/dL AST 29 (15-37) U/L ALT 20 (14-63) U/L Alkaline Phosphatase 91 (46-116) U/L Troponin I High Sens 18.300 (0-51.000) pg/mL B-Natriuretic Peptide 206 H (0-100) pg/mL Total Protein 7.1 (6.4-8.2) g/dL Albumin 3.34 L (3.40-5.00) g/dL Meds: Medications Discontinued Medications Generic Name Dose Route Start Last Admin Trade Name Freq PRN Reason Stop Dose Admin Ondansetron HCl Confirm 08/08/21 13:42 Ondansetron 4 Mg/2 Ml Sdv Administered 08/08/21 13:43 Dose 4 mg .ROUTE .STK-MED ONE Ondansetron HCl 4 mg 08/08/21 14:11 Ondansetron 4 Mg/2 Ml Sdv IVPUSH 08/08/21 14:12 ONETIME ONE - Radiology Interpretation Free Text/Narrative:: CT the head stroke protocol Findings: No intracranial hemorrhage, extra-axial fluid collection, mass, or acute ischemia. Generalized paronychial atrophy with scattered areas of nonspecific white matter disease, commonly seen as sequela of chronic microvascular ischemia. Soft tissues are unremarkable. Mild mucosal thickening without evidence of aggressive sinusitis. Impression: No acute intracranial findings. - Re-Assessments/Exams Free Text/Narrative Re-Assessment/Exam: 08/08/21 16:33 Patient's vital signs are stable. Neurologic signs are unchanged from admission. Departure - Departure Time of Disposition: 14:05 Disposition: DC/Tfer to Acute Hospital 02 Condition: Poor Clinical Impression: CVA (cerebral vascular accident) Qualifiers: CVA mechanism: unspecified Qualified Code(s): I63.9 - Cerebral infarction, unspecified - Discharge Information Referrals: Nury Mahan MD [Primary Care Provider] - Forms: ED Department Discharge Sepsis Event Note (ED) - Evaluation Sepsis Screening Result: No Definite Risk - Focused Exam Vital Signs: Vital Signs Temp Pulse Resp BP Pulse Ox 08/08/21 12:15 96.8 F L 105 H 20 138/76 95 - My Orders Last 24 Hours: My Active Orders 08/08/21 12:30 EKG Documentation Completion [RC] ASDIRECTED EKG 12 Lead [EK] Stat - Assessment/Plan Last 24 Hours: My Active Orders 08/08/21 12:30 EKG Documentation Completion [RC] ASDIRECTED EKG 12 Lead [EK] Stat Assessment:: Acute stroke, CVA Plan: Patient is transferred to [address] to the emergency room. CTA of the brain and possible MRI for further work-up evaluation for acute stroke symptoms. Patient is stable. Patient is transferred by ground ambulance. Patient was e xcepted for transfer to the emergency room by neurology [place].
== END 2021-08-08 14:05 ==
LOC: KA.ED 12:09
DX: I63.9 Cerebral infarction, unspecified (principal); I48.91 Unspecified atrial fibrillation; E03.9 Hypothyroidism, unspecified; Z91.041 Radiographic dye allergy status; Z88.8 Allergy status to other drugs, medicaments and biological substances; Z79.899 Other long term (current) drug therapy
CPT/HCPCS: 36415; 70450; 80053; 82947; 83880; 84484; 85025; 85610; 85730; 93005; 93010; 99284; 99285-25